=== PATIENT | male | born 1960 | race Caucasian/White ===

== ENCOUNTER → 2024-06-30 07:56 | Outpatient (REF) | payer BC, SELFPAY ==
[2024-06-30 08:51] LABS: Hematocrit 39.7 % (39.0-52.0); Hemoglobin 13.9 g/dL (13.0-18.0); Mean Corpuscular Volume 91.5 fL (80.0-94.0); Mean Platelet Volume 9.5 fL (7.4-10.4); Platelet Count 156 10^3/uL (130-400); Red Blood Cell Count 4.34 10^6/uL (4.70-6.10); Red Cell Dist. Width 13.2 % (11.5-14.5); White Blood Cell Count 5.3 10^3/uL (4.8-10.8)
[2024-06-30 09:30] LABS: ALT (SGPT) 66 U/L (0-50); AST (SGOT) 83 U/L (17-59); Albumin 4.5 g/dl (3.5-5.0); Alkaline Phosphatase 73 U/L (38-126); Blood Urea Nitrogen 18 mg/dl (9-20); Calcium 9.6 mg/dl (8.4-10.2); Carbon Dioxide 28 mmol/L (22-30); Chloride 102 mmol/L (98-107); Glucose 111 mg/dl (70-99); HDL Cholesterol 52 mg/dl; LDL Cholesterol, Calculated 56 mg/dl; Potassium 5.1 mmol/L (3.5-5.1); Sodium 141 mmol/L (135-145); Total Bilirubin 1.2 mg/dl (0.2-1.3); Total Cholesterol 135 mg/dl (50-199); Total Protein 7.3 g/dl (6.3-8.2); Triglyceride 136 mg/dl (10-149); Very Low Density Lipoprotein 27 mg/dl (0-30); eGFR > 60.00
[2024-06-30 09:59] LABS: PSA, Total - Screen 0.69 ng/ml (0.0-4.0); TSH 4.89 uIU/ml (0.47-4.68)
[2024-07-01 10:17] LABS: Iron 165 ug/dl (49-181)
[2024-07-01 11:47] LABS: Amylase 63 U/L (30-110); Lipase 113 U/L (23-300)
== END ==
LOC: REG 07:56
PROVIDERS: ATTENDING PHYSICIAN Family Medicine
DX: Z00.00 Encounter for general adult medical examination without abnormal findings (principal); I10 Essential (primary) hypertension; E78.5 Hyperlipidemia, unspecified; E66.9 Obesity, unspecified; K21.9 Gastro-esophageal reflux disease without esophagitis; N52.9 Male erectile dysfunction, unspecified
CPT/HCPCS: 36415; 80053; 80061; 82150; 83540; 83690; 84443; 85027; G0103

== ENCOUNTER → 2024-12-28 06:50 | Outpatient (REF) | payer BC, SELFPAY ==
[2024-12-28 08:16] LABS: % Basophils 0.4 % (0-2); % Eosinophils 3.9 % (0-6); % Immature Granulocytes 0.2 % (0-0.5); % Lymphocytes 21.1 % (20.5-51.1); % Monocytes 7.4 % (1.7-9.3); Absolute Eosinophils 0.2 10^3/uL (0-0.7); Absolute Monocytes 0.3 10^3/uL (0.1-0.6); Absolute Neutrophils 3.1 10^3/uL (1.4-6.5); Hematocrit 42.8 % (39.0-52.0); Hemoglobin 15.6 g/dL (13.0-18.0); Mean Corp Hgb Conc. 36.4 g/dL (33.0-37.0); Mean Corpuscular Hgb 34.2 pg (27.0-31.0); Mean Corpuscular Volume 93.9 fL (80.0-94.0); Mean Platelet Volume 9.6 fL (7.4-10.4); Nucleated Red Blood Cells % 0 % (-); Platelet Count 194 10^3/uL (130-400); Red Blood Cell Count 4.56 10^6/uL (4.70-6.10); Red Cell Dist. Width 13.2 % (11.5-14.5); White Blood Cell Count 4.6 10^3/uL (4.8-10.8)
[2024-12-28 08:58] LABS: ALT (SGPT) 69 U/L (0-50); AST (SGOT) 66 U/L (17-59); Albumin 4.6 g/dl (3.5-5.0); Alkaline Phosphatase 74 U/L (38-126); Blood Urea Nitrogen 15 mg/dl (9-20); Calcium 9.7 mg/dl (8.4-10.2); Carbon Dioxide 31 mmol/L (22-30); Chloride 107 mmol/L (98-107); Glucose 101 mg/dl (70-99); Iron 121 ug/dl (49-181); Potassium 4.6 mmol/L (3.5-5.1); Sodium 146 mmol/L (135-145); Total Bilirubin 0.8 mg/dl (0.2-1.3); Total Protein 7.6 g/dl (6.3-8.2); eGFR > 60.00
[2024-12-28 09:08] LABS: Percent Saturation 33 % (20-50); Total Iron Binding Capacity 362 ug/dl (261-462)
[2024-12-28 09:25] LABS: Ferritin 81.6 ng/ml (17.9-464.0)
[2024-12-28 19:40] LABS: Hepatitis B Surface Antigen Negative (Negative)
[2024-12-28 19:57] LABS: Hepatitis B Surface Antibody Negative
[2024-12-28 20:52] LABS: Hepatitis C Antibody Negative (Negative)
[2024-12-29 15:04] LABS: F-Actin Antibody IgG 9 Units (0-19); Mitochondrial M2 Ab, IgG 6.8 Units (0.0-24.9)
[2024-12-29 15:09] LABS: Hepatitis B Core Ab, Total Negative (Negative)
[2024-12-29 18:31] LABS: ANA, IgG Reflex to HEp-2 None Detected (None Detected)
== END ==
LOC: REG 06:50
PROVIDERS: ATTENDING PHYSICIAN Specialist; FAMILY PHYSICIAN Family Medicine
DX: R79.89 Other specified abnormal findings of blood chemistry (principal)
CPT/HCPCS: 36415; 80053; 82728; 83540; 83550; 85025; 86015; 86038; 86381; 86704; 86706; 86803; 87340

== ENCOUNTER 2025-01-01 06:21 | Day surgery (SDC) | payer BC, SELFPAY | END 2025-01-01 14:43 | disposition home or self-care (01) | LOC: GI 06:21 | PROVIDERS: ATTENDING PHYSICIAN Specialist | DX: Z12.11 Encounter for screening for malignant neoplasm of colon (principal); D12.2 Benign neoplasm of ascending colon; D12.3 Benign neoplasm of transverse colon; D12.4 Benign neoplasm of descending colon; Z86.0101 Personal history of adenomatous and serrated colon polyps | CPT/HCPCS: 45385; 45380; 88305 ==